=== PATIENT | female | born 1945 | race African-American/Black ===

== ENCOUNTER 2018-09-20 18:05 | Emergency (ER) | payer OTHER ==
[~2018-09-20] VITALS: Ht 165.1 cm; Wt 63.5 kg
[~2018-09-20 18:05] MED LIST: AMLODIPINE BESYL5 MG PO; ASPIRIN81 M2 PO; CLONAZEPAM 1 MG1 M1 PO; KLOR-CON 1010 MEQ PO; PRINZIDE 20-121 EACH PO; SIMVASTATIN20 MG PO; VERTICALM25 MG PO
[2018-09-20 19:38] LABS: HEMATOCRIT 33.4 % (37.0-47.0); MCH 27.3 pg (26.0-34.0); MCHC 32.8 g/dL (28.0-37.0); MCV 83.2 fL (80.0-100.0); RBC 4.01 mil/uL (4.20-5.00); RDW 15.2 % (10.5-14.5); WBC 3.6 thou/uL (4.0-11.0)
[2018-09-20 19:48] LABS: CALCIUM 8.4 mg/dL (8.5-10.1); CREATININE 1.3 mg/dL (0.6-1.0); POTASSIUM 3.3 mmol/L (3.5-5.1)
[2018-09-20 19:54] LABS: ALBUMIN 3.2 g/dL (3.4-5.0); MAGNESIUM 1.7 mg/dL (1.8-2.4); TOTAL BILIRUBIN 0.3 mg/dL (<0.1-1.0); TOTAL PROTEIN 6.6 g/dL (6.4-8.2)
[2018-09-20] MEDS ORDERED: TRAMADOL 50 MG50 MG PO (20:23)
[2018-09-20] MEDS ORDERED: ANTIVERT25 MG PO (20:43)
[2018-09-20] MEDS ORDERED: MAG-OXIDE400 MG PO (20:43)
[2018-09-20 21:08] VITALS: BP 145/85
== END 2018-09-20 21:09 | disposition home or self-care (01) ==
LOC: ER 18:05
PROVIDERS: Emergency Medicine
DX: M79.604 Pain in right leg (principal); M79.605 Pain in left leg; E87.6 Hypokalemia; E83.42 Hypomagnesemia; R60.0 Localized edema; I12.9 Hypertensive chronic kidney disease with stage 1 through stage 4 chronic kidney disease, or unspecified chronic kidney disease; N18.9 Chronic kidney disease, unspecified; F32.9 Major depressive disorder, single episode, unspecified; Z88.8 Allergy status to other drugs, medicaments and biological substances